=== PATIENT | male | born 1960 | race American Indian/Alaskan Native ===

== ENCOUNTER 2017-05-14 18:31 | Emergency (ER) | payer OTHER ==
[2017-05-14 23:27] VITALS: BP 142/91
[2017-05-14] MEDS ORDERED: MOTRIN PO ONE (23:34)
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
== END 2017-05-14 23:46 | disposition home or self-care (01) ==
LOC: ED 18:31
DX: M54.89 Other dorsalgia (principal); I10 Essential (primary) hypertension; E11.9 Type 2 diabetes mellitus without complications; V49.49XA Driver injured in collision with other motor vehicles in traffic accident, initial encounter; Y93.89 Activity, other specified; Y92.89 Other specified places as the place of occurrence of the external cause; Y99.8 Other external cause status
CPT/HCPCS: 99282

== ENCOUNTER 2021-05-01 19:16 | Emergency (ER) | payer MEDICAID ==
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
[2021-05-02 01:12] VITALS: BP 139/73
== END 2021-05-02 01:12 | disposition home or self-care (01) ==
LOC: ED 19:16
DX: S33.39XA Dislocation of other parts of lumbar spine and pelvis, initial encounter (principal); I10 Essential (primary) hypertension; E11.8 Type 2 diabetes mellitus with unspecified complications; V89.2XXA Person injured in unspecified motor-vehicle accident, traffic, initial encounter; Y93.89 Activity, other specified; Y92.89 Other specified places as the place of occurrence of the external cause; Y99.8 Other external cause status
CPT/HCPCS: 72100; 99283

== ENCOUNTER 2021-05-02 09:24 | Emergency (ER) | payer MEDICAID ==
[2021-05-02 09:54] VITALS: BP 153/87
[2021-05-02] MEDS ORDERED: IBUPROFEN 600 MG TAB PO ONE (10:39)
[2021-05-02] MEDS ORDERED: ACETAMINOPHEN 325 MG TAB PO ONE (10:39)
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
== END 2021-05-02 11:59 | disposition home or self-care (01) ==
LOC: ED 09:24
DX: S63.502A Unspecified sprain of left wrist, initial encounter (principal); S29.012A Strain of muscle and tendon of back wall of thorax, initial encounter; I10 Essential (primary) hypertension; E11.9 Type 2 diabetes mellitus without complications; V59.88XA Occupant (driver) (passenger) of pick-up truck or van injured in other specified transport accidents, initial encounter; Y93.89 Activity, other specified; Y92.89 Other specified places as the place of occurrence of the external cause; Y99.8 Other external cause status
CPT/HCPCS: 72072; 72100; 99283